=== PATIENT | female | born 1950 | race Two or more races ===

== ENCOUNTER 2022-06-09 06:51 | Emergency (ER) | payer OTHER ==
[~2022-06-09] VITALS: Ht 154.9 cm; Wt 63.5 kg
[2022-06-09] MEDS ORDERED: DICLOFENAC POTA50 MG PO (10:12)
[2022-06-09] MEDS ORDERED: ORPHENADRINE C100 MG PO (10:12)
== END 2022-06-09 10:29 ==
LOC: ER 06:51
DX: S33.5XXA Sprain of ligaments of lumbar spine, initial encounter (principal); S13.4XXA Sprain of ligaments of cervical spine, initial encounter; S23.41XA Sprain of ribs, initial encounter; W07.XXXA Fall from chair, initial encounter; Y93.89 Activity, other specified; Y92.59 Other trade areas as the place of occurrence of the external cause; Y99.9 Unspecified external cause status